=== PATIENT | male | born 2000 | race African-American/Black ===

== ENCOUNTER 2020-09-14 14:14 | Emergency (ER) | payer MEDICAID ==
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
[2020-09-14] MEDS ORDERED: Acetaminophen 500 MG TAB ONE (16:16)
== END 2020-09-14 16:20 | disposition home or self-care (01) ==
LOC: ERS 14:14
DX: M79.604 Pain in right leg (principal); M25.512 Pain in left shoulder; V69.40XA Driver of heavy transport vehicle injured in collision with unspecified motor vehicles in traffic accident, initial encounter
CPT/HCPCS: 70450; 72125